=== PATIENT | female | born 1990 | race Two or more races ===

== ENCOUNTER 2021-08-30 21:13 | Inpatient (IN) | payer BC ==
[~2021-08-30] VITALS: Ht 170.2 cm; Wt 0.5 kg
[2021-08-31] MEDS ORDERED: PRENATAL + DHA1 EAC1 PO (22:30)
[2021-08-31] MEDS ORDERED: PEPCID AC20 MG PO (22:32)
[2021-09-10] MEDS ORDERED: Tylenol #3 PO (13:53)
[2021-09-10] MEDS ORDERED: PROCARDIA PO (13:53)
[2021-09-10] MEDS ORDERED: NAPR500T14 PO (13:53)
== END 2021-09-10 17:40 | disposition home or self-care (01) | DRG 786 ==
LOC: LDR 21:13 → OB/GYN 09-01 14:35 → LDR 09-07 15:07 → OB/GYN 09-09 11:28
PROVIDERS: ADMIT Obstetrics & Gynecology; ATTEND Obstetrics & Gynecology
PROC: 4A1HXCZ Monitoring of Products of Conception, Cardiac Rate, External Approach (ICD-10-PCS; 2021-08-30)
PROC: BY4CZZZ Ultrasonography of Second Trimester, Single Fetus (ICD-10-PCS; 2021-08-31)
PROC: BY4CZZZ Ultrasonography of Second Trimester, Single Fetus (ICD-10-PCS; 2021-09-01)
PROC: 10D00Z1 Extraction of Products of Conception, Low, Open Approach (ICD-10-PCS; principal; 2021-09-07 18:00)
DX: O13.2 Gestational [pregnancy-induced] hypertension without significant proteinuria, second trimester (principal); O60.12X0 Preterm labor second trimester with preterm delivery second trimester, not applicable or unspecified; O41.02X0 Oligohydramnios, second trimester, not applicable or unspecified; O14.12 Severe pre-eclampsia, second trimester; O36.8320 Maternal care for abnormalities of the fetal heart rate or rhythm, second trimester, not applicable or unspecified; O36.8120 Decreased fetal movements, second trimester, not applicable or unspecified; Z3A.24 24 weeks gestation of pregnancy; Z20.822 Contact with and (suspected) exposure to COVID-19; Z37.0 Single live birth; Z3A.26 26 weeks gestation of pregnancy